=== PATIENT | female | born 1970 | race Caucasian/White ===

== ENCOUNTER → 2016-12-02 16:17 | Outpatient (CLI) | payer OTHER | END | disposition home or self-care (01) | LOC: D.MAMMO 11-08 16:15 | DX: Z12.31 Encounter for screening mammogram for malignant neoplasm of breast (principal) ==

== ENCOUNTER 2019-08-07 08:44 | Emergency (ER) | payer OTHER ==
[~2019-08-07] VITALS: Ht 152.4 cm; Wt 75.9 kg
[2019-08-07 08:50] VITALS: Ht 152.4 cm; Wt 75.9 kg
[2019-08-07] MEDS ORDERED: NEXIUM40 MG PO (08:52)
[2019-08-07] MEDS ORDERED: PROZAC40 MG PO (08:52)
[2019-08-07] MEDS ORDERED: MOBIC7.5 MG PO (08:53)
[2019-08-07] MEDS ORDERED: RESTORIL15 MG PO (08:53)
[2019-08-07] MEDS ORDERED: CRESTOR40 MG PO (08:53)
[2019-08-07] MEDS ORDERED: BUPROPION HCL150 M1 PO (08:54)
[2019-08-07] MEDS ORDERED: HYDROXYZINE HCL10 MG PO (08:55)
[2019-08-07 09:24] LABS: BASOPHILS 0.8 % (0-2); EOSINOPHILS 0.9 % (0-7); HEMOGLOBIN 16.5 g/dL (12-16); IMMATURE GRANULOCYTES 3.5 % (0-5); LYMPHOCYTES 18.8 % (15-50); MCH 30.1 pg (26.0-34.0); MCHC 34.4 g/dL (31.0-37.0); MCV 87.6 fL (80.0-100.0); MEAN PLATELET VOLUME 10.1 fL (7.4-10.4); MONOCYTES 13.4 % (2-11); NEUTROPHILS 62.6 % (40-80); PLATELET COUNT 327 10x3/uL (130-400); RBC 5.48 10x6/uL (4.00-5.40); RDW 13.7 % (11.5-14.5); WBC 9.3 10x3/uL (4.8-10.8)
[2019-08-07 09:29] LABS: ALBUMIN 3.2 g/dL (3.4-5.0); ALKALINE PHOSPHATASE 133 U/L (46-116); ALT (SGPT) 36 U/L (10-68); BILIRUBIN - TOTAL 0.41 mg/dL (0.2-1.3); CALC OSMOLALITY 279 mosm/kg (275-300); CALCIUM 8.9 mg/dL (8.5-10.1); CARBON DIOXIDE 28.8 mmol/L (21.0-32.0); CHLORIDE - SERUM 100 mmol/L (98-107); CREATININE - SERUM 0.9 mg/dL (0.6-1.3); GLUCOSE 101 mg/dL (74-106); POTASSIUM - SERUM 3.4 mmol/L (3.5-5.1); PROTEIN - SERUM 8.1 g/dL (6.4-8.2); SODIUM 140 mmol/L (136-145); UREA NITROGEN 16 mg/dL (7-18); eGFR NON AFRICAN AMERICAN 70 mL/min (90-120)
[2019-08-07 09:33] LABS: AMYLASE - SERUM 28 U/L (25-115); LIPASE 74 U/L (73-393); TROPONIN-I < 0.017 ng/mL (0.000-0.060)
[2019-08-07 09:39] LABS: APPEARANCE HAZY (CLEAR); BACTERIA MODERATE /hpf (NONE SEEN); BILIRUBIN NEGATIVE (NEGATIVE); COLOR YELLOW (YELLOW); EPITHELIAL CELLS 0-5 /hpf (0-5); GLUCOSE NEGATIVE (NEGATIVE); KETONE SMALL mg/dL (NEGATIVE); MUCUS <1+ /lpf (NONE SEEN); NITRITE NEGATIVE (NEGATIVE); PROTEIN TRACE mg/dL (NEGATIVE); RED CELLS - URINE RARE /hpf (0-5); SPECIFIC GRAVITY 1.015 (1.005-1.020); UROBILINOGEN NORMAL (NORMAL); WHITE CELLS - URINE 0-5 /hpf (0-5)
[2019-08-07] MEDS ORDERED: FLORASTOR250 MG PO (11:51)
[2019-08-07] MEDS ORDERED: ZOFRAN ODT4 MG/UDTAB PO (11:52)
[2019-08-07 12:10] VITALS: BP 104/64
== END 2019-08-07 12:10 | disposition home or self-care (01) ==
LOC: D.ER 08:44
PROVIDERS: Family Medicine
DX: R11.2 Nausea with vomiting, unspecified (principal); R19.7 Diarrhea, unspecified; R10.9 Unspecified abdominal pain; K21.9 Gastro-esophageal reflux disease without esophagitis